=== PATIENT | female | born 1985 | race Caucasian/White ===

== ENCOUNTER 2017-12-16 11:00 | Emergency (ER) | payer OTHER, MEDICAID ==
[~2017-12-16] VITALS: Ht 157.5 cm; Wt 49.9 kg
[~2017-12-16 11:00] MED LIST: ACTICIN 5% CREA60 G1 TOP; BACTRIM DS TAB1 EACH PO; BENADRYL25 MG PO; CIPROFLOXACIN500 M1 PO; CYCLOBENZAPRINE5 MG PO; DICLOFENAC SOD2.5 ML OP; ERYTHROMYCIN E3.5 G1 OPHTHALMIC; FLEXERIL PO; HYDROCODON-ACE1 EAC7 PO; HYDROCODONE-AP1 EAC6 PO; IBUPROFEN 600600 M1 PO; IBUPROFEN 800800 M1 PO; IRON159 MG; KEFLEX500 MG; KEFLEX500 MG PO; KENALOG60 GM TP; MACROBID 100 M100 M1 PO; MEDROLDOSEPACK PO; NAPROSYN500 MG PO; NOHOMEMEDICATIONS; NORCO 5-325 TA1 EAC1 PO; NORCO 5-325 TA1 EACH PO; NORFLEX100 MG PO; PENICILLIN V P500 MG PO; PHENAZOPYRIDIN200 M2 PO; PREDNISONE 20 M20 M1 PO; PREDNISONE50 MG PO; PRENATAL; PROCTOCREAM-HC30 G1 RC; REGLAN 10 MG TA10 MG PO; ROBAXIN 750 MG750 M1 PO; ROBAXIN500 MG PO; TOBREX3.5 GM OP; TORADOL 10 MG T10 MG PO; TRAMADOL 50 MG50 MG PO; ULTRAM 50MG TAB50 MG PO; ZANAFLEX4 MG PO; ZOLOFT25 MG PO
[2017-12-16] MEDS ORDERED: CYCLOBENZAPRINE5 MG PO (13:06)
[2017-12-16] MEDS ORDERED: IBUPROFEN 800800 MG PO (13:06)
[2017-12-16] MEDS ORDERED: TORADOL 10 MG T10 MG PO (13:16)
[2017-12-16 13:20] VITALS: BP 132/47
== END 2017-12-16 13:20 | disposition home or self-care (01) ==
LOC: M.ERS 11:00
DX: M62.838 Other muscle spasm (principal); F17.210 Nicotine dependence, cigarettes, uncomplicated; F10.99 Alcohol use, unspecified with unspecified alcohol-induced disorder

== ENCOUNTER 2020-09-03 08:07 | Emergency (ER) | payer OTHER, MEDICAID ==
[~2020-09-03] VITALS: Ht 157.5 cm; Wt 49.9 kg
[~2020-09-03 08:07] MED LIST changes: +IBUPROFEN 800800 MG PO
[2020-09-03] MEDS ORDERED: NEURONTIN 300M300 M2 PO (08:20)
[2020-09-03 09:40] VITALS: BP 105/57
== END 2020-09-03 09:40 | disposition left against medical advice (07) ==
LOC: M.ERS 08:07
DX: S40.011A Contusion of right shoulder, initial encounter (principal); S70.01XA Contusion of right hip, initial encounter; E03.9 Hypothyroidism, unspecified; F17.210 Nicotine dependence, cigarettes, uncomplicated; Z86.2 Personal history of diseases of the blood and blood-forming organs and certain disorders involving the immune mechanism; X50.9XXA Other and unspecified overexertion or strenuous movements or postures, initial encounter; Y93.89 Activity, other specified; Y92.89 Other specified places as the place of occurrence of the external cause; Y99.0 Civilian activity done for income or pay